=== PATIENT | female | born 1985 | race Caucasian/White ===

== ENCOUNTER 2025-04-08 11:04 | Emergency (ER) | payer OTHER ==
[~2025-04-08] VITALS: Ht 162.6 cm; Wt 90.9 kg
[2025-04-08 11:08] VITALS: TEMP 97.9
[2025-04-08 11:35] LABS: APPEARANCE,URINE CLEAR (CLEAR); GLUCOSE, URINE (UA) NEGATIVE (NEGATIVE); LEUKOCYTE ESTERASE ,URINE NEGATIVE (NEGATIVE); NITRATE,URINE NEGATIVE (NEGATIVE); OCCULT BLOOD,URINE TRACE (NEGATIVE); SPECIFIC GRAVITIY, URINE 1.012 (1.003-1.030)
[2025-04-08 11:44] LABS: SQUAMOUS EPITHELIAL CELL,UR Rare /LPF (None Seen)
[2025-04-08 11:47] LABS: PLATELET COUNT (AUTO) 217 K/uL (150-450); RED BLOOD CELL COUNT(AUTO) 5.49 MIL/uL (4.00-5.20); RED CELL DISTRIBUTION WIDTH 14.2 % (11.5-14.5); WHITE BLOOD COUNT (AUTO) 5.4 K/uL (4.5-11.0)
[2025-04-08 11:52] LABS: CALCIUM, TOTAL 9.2 mg/dL (8.8-10.5); CREATININE 0.71 mg/dL (0.60-1.30); GLOMERULAR FILTR. RATE CALC > 60 mL/min (>60); GLUCOSE,RANDOM 97 mg/dL (70-110); SODIUM SERUM 139 mmol/L (136-145); UREA NITROGEN, BLOOD 10 mg/dL (7-18)
[2025-04-08] MEDS: SODIUM CHLORIDE 0.9% 1,000 ML IV ONE (12:00)
[2025-04-08] MEDS: ONDANSETRON HCL 4 MG/2 ML VIAL IVP ONE (12:00)
[2025-04-08 12:01] LABS: ASPARTATE AMINOTRANSFERASE 12.0 U/L (15-37); TOTAL PROTEIN, SERUM 7.7 g/dL (6.4-8.2)
[2025-04-08 12:21] LABS: RBC MORPHOLOGY COMMENT ABNORMAL RBC MORPH
[2025-04-08 12:23] VITALS: BP 111/65; PULSE 56; RESP 12; O2SAT 100
[2025-04-08] MEDS: ACETAMINOPHEN 500 MG TABLET PO ONE (12:50)
[2025-04-08] MEDS: PB/HYOSCY/ATR/SCOP/LIDO/MAALOX 55 ML BOTTLE PO ONE (12:51)
[2025-04-08] MEDS ORDERED: OMEP-148 PO (12:58)
[2025-04-08] MEDS ORDERED: ACET-66 PO (12:58)
[2025-04-08] MEDS ORDERED: MAG30ORA11 PO (12:58)
== END 2025-04-08 13:28 | disposition home or self-care (01) ==
LOC: EMS 11:07
DX: K29.70 Gastritis, unspecified, without bleeding (principal); R10.13 Epigastric pain
CPT/HCPCS: 99285; 96374; 76705; 80048; 80076; 81001; 83690; 84703; 85025; 36415; J2405; J7030

== ENCOUNTER 2025-07-25 20:29 | Emergency (ER) | payer SELFPAY ==
[~2025-07-25] VITALS: Ht 162.6 cm; Wt 90.0 kg
[~2025-07-25 20:29] MED LIST: ACET-66 PO; MAG30ORA11 PO; OMEP-148 PO
[2025-07-25 20:36] VITALS: BP 139/81; PULSE 89; RESP 18; TEMP 98.1; O2SAT 100
== END 2025-07-25 22:30 | disposition left against medical advice (07) ==
LOC: EMS 20:29
DX: R51.9 Headache, unspecified (principal); Z53.21 Procedure and treatment not carried out due to patient leaving prior to being seen by health care provider
CPT/HCPCS: 99281; Z7502